=== PATIENT | female | born 1990 | race Caucasian/White ===

== ENCOUNTER 2018-05-20 12:29 | Emergency (ER) | payer OTHER, SELFPAY ==
[2018-05-20 13:31] VITALS: BP 119/68; PULSE 83; RESP 14; TEMP 37; O2SAT 99
--- NOTE | 2018-05-20 14:17 | ED_ITS ---
HPI - Back Pain/Injury General Chief Complaint: Back Pain/Injury Stated Complaint: BACK PAIN,FELL OFF PULLUP BAR Time Seen by Provider: 05/20/18 14:15 Source: patient Mode of arrival: ambulatory Limitations: no limitations History of Present Illness HPI Narrative: Patient is a 27-year-old female who presents with back pain. She was hanging by her legs from a pull-up bar in a door way last evening doing sit- ups. She fell onto her lower back area. She has no numbness or tingling. It hurts mostly on the right side not in the center. No changes in bowel or bladder habits. She says it does hurt while she breathes but does not feel short of breath MD Complaint: back pain, back injury and fall Duration: constant Location: lumbar spine Related Data Allergies Allergy/AdvReac Type Severity Reaction Status Date / Time amoxicillin Allergy Verified 05/20/18 14:02 Review of Systems Review of Systems All systems reviewed & are unremarkable except as noted in HPI and below Constitutional Denies chills, Denies fever(s), Denies lethargy and Denies weakness Cardiovascular Denies chest pain, Denies irregular heart rhythm, Denies lightheadedness, Denies palpitations and Denies orthopnea Respiratory Reports pain on inspiration Gastrointestinal Gastrointestinal: Denies abdominal pain, Denies change in bowel habits, Denies diarrhea, Denies nausea and Denies vomiting Musculoskeletal Reports as per HPI Integumentary/Breasts Denies pruritus, Denies erythema, Denies rash and Denies wounds Neurologic Denies weakness Endocrine Denies palpitations PFSH Medical History Healthy adult (Acute) Exam Initial Vital Signs Initial Vital Signs: Vital Signs Temperature 98.6 F 05/20/18 13:31 Pulse Rate 83 05/20/18 13:31 Respiratory Rate 14 05/20/18 13:31 Blood Pressure 119/68 05/20/18 13:31 Pulse Oximetry 99 05/20/18 13:31 GENERAL: Standing in room no acute distress HEENT: Head atraumatic,EOMI, pupils reactive, neck is supple CARDIOVASCULAR: Regular rate and rhythm without murmurs, rubs or gallops. RESPIRATORY: Breath sounds equal bilaterally, no wheezes rales or rhonchi. Minor lower rib pain, no flail chest no contusion. ABDOMEN: Soft, nontender. Normoactive bowel sounds all 4 quadrants. No guarding or rebound. RECTAL: Hemoccult-positive, no hemorrhoids, nontender : No CVA tenderness BACK: No midline vertebral tenderness some mild left lower lumbar pain no is pelvic pain. EXTREMITIES: Normal range of motion, no clubbing or edema. Neurovascularly intact NEUROLOGICAL: Alert and oriented x4.Normal gait and speech. SKIN: Warm, dry, no laceration, no petechiae, no rashes or lesions. Course Vital Signs - 8 hr 05/20/18 13:31 Temperature 98.6 F Pulse Rate 83 Respiratory Rate 14 Blood Pressure 119/68 Pulse Oximetry 99 MDM - Back Pain/Injury MDM Narrative Medical decision making narrative: Offered x-ray to ribs to patient however she declined at this time. Will treat conservatively with ibuprofen. Discharge Plan Departure Patient Disposition: Home Clinical Impression: Strain of lumbar region Discharge Date/Time: 05/20/18 14:50 Interventions: ED Discharge Assessment Last Done: 05/20/18 14:50 Instructions: DI for Contusion Activity Restrictions/Additional Instructions: *You have been diagnosed with back contusion and strain *What to do: Rest, ice or heat as needed *Continue to take medications as directed Motrin 800 mg every 8 hr if needed with food *Follow up with your primary care provider in 2-3 days *Return to ER if you should have or any new, worsening or concerning symptoms
== END 2018-05-20 14:50 | disposition home or self-care (01) ==
PROVIDERS: Emergency Provider Emergency Medicine
DX: S39.012A Strain of muscle, fascia and tendon of lower back, initial encounter (principal); W19.XXXA Unspecified fall, initial encounter
CPT/HCPCS: 99282